=== PATIENT | female | born 1980 | race Caucasian/White ===

== ENCOUNTER 2017-01-31 09:26 | Emergency (ER) | payer OTHER ==
[2017-01-31] MEDS ORDERED: ORPHENADRINE C100 MG PO (10:03)
[2017-01-31] MEDS ORDERED: KETOROLAC10 MG PO (10:03)
[2017-01-31] MEDS ORDERED: ESCITALOPRAM20 MG PO (10:22)
[2017-01-31] MEDS ORDERED: BIRTH CONTROL (10:22)
[2017-01-31] MEDS ORDERED: PANTOPRAZOLE SO40 MG PO (10:22)
[2017-01-31] MEDS ORDERED: LEVORA-28 30 MC1 TA1 PO (10:23)
[2017-01-31] MEDS ORDERED: D-1000 185 MG-11 TAB PO (10:23)
[2017-01-31] MEDS ORDERED: DESYREL 50MG50 MG PO (10:24)
[2017-01-31] MEDS ORDERED: DAILY VALUE1 EACH PO (10:24)
[2017-01-31 10:33] VITALS: BP 106/54
== END 2017-01-31 10:35 | disposition home or self-care (01) ==
LOC: ED 09:26
DX: R51 Headache (principal); M26.621 Arthralgia of right temporomandibular joint
CPT/HCPCS: J1885; J2360

== ENCOUNTER 2017-02-05 16:08 | Emergency (ER) | payer OTHER ==
[~2017-02-05 16:08] MED LIST: BIRTH CONTROL; D-1000 185 MG-11 TAB PO; DAILY VALUE1 EACH PO; DESYREL 50MG50 MG PO; ESCITALOPRAM20 MG PO; KETOROLAC10 MG PO; LEVORA-28 30 MC1 TA1 PO; ORPHENADRINE C100 MG PO; PANTOPRAZOLE SO40 MG PO
[2017-02-05] MEDS ORDERED: CYCLOBENZAPRINE10 M1 PO (18:20)
[2017-02-05] MEDS ORDERED: IMITREX 25MG TA25 MG PO (18:20)
[2017-02-05 18:41] VITALS: BP 125/65
== END 2017-02-05 18:40 | disposition home or self-care (01) ==
LOC: ED 16:08
DX: G43.919 Migraine, unspecified, intractable, without status migrainosus (principal); G44.209 Tension-type headache, unspecified, not intractable; Z56.3 Stressful work schedule; R79.89 Other specified abnormal findings of blood chemistry